=== PATIENT | female | born 1990 | race Caucasian/White ===

== ENCOUNTER 2020-08-24 15:25 | Inpatient (IN) | payer BC ==
[~2020-08-24] VITALS: Ht 170.2 cm; Wt 125.6 kg
[2020-08-24] MEDS ORDERED: HALOPERIDOL 5 MG TABLET PO PRN (19:30)
[2020-08-24 20:07] VITALS: BP 131/92
[2020-08-25 01:41] VITALS: BP 126/75
[2020-08-25 07:48] LABS: BASOPHILS % (AUTO) 0.6 % (0.0-2.0); HEMATOCRIT 39.5 % (36-46); HEMOGLOBIN 12.8 g/dL (12.0-16.0); LYMPHOCYTES # (AUTO) 2.4 K/uL (1.0-4.8); LYMPHOCYTES % (AUTO) 33.7 % (22.0-44.0); MEAN CORPUSCULAR HEMOGLOBIN 28.9 pg (26.0-34.0); MEAN CORPUSCULAR HGB CONC 32.5 G/dL (31.0-37.0); MEAN CORPUSCULAR VOLUME 89 fL (80-100); MONOCYTES # (AUTO) 0.6 K/uL (0.1-1.0); MONOCYTES % (AUTO) 8.7 % (2.0-9.0); NEUTROPHILS # (AUTO) 3.7 K/uL (1.8-7.7); PLATELET COUNT (AUTO) 425 K/uL (150-450); RED BLOOD CELL COUNT(AUTO) 4.45 MIL/uL (4.00-5.20); RED CELL DISTRIBUTION WIDTH 15.7 % (11.5-14.5)
[2020-08-25 08:08] LABS: HEMOGLOBIN A1C 5.3 % (3.8-5.6)
[2020-08-25 08:09] VITALS: BP 126/81
[2020-08-25] MEDS ORDERED: PETROLATUM,WHITE 28 GM JELLY TP PRN (08:15)
[2020-08-25] MEDS ORDERED: DOCUSATE SODIUM 100 MG CAPSULE PO PRN (08:15)
[2020-08-25] MEDS ORDERED: LOPERAMIDE HCL 2 MG CAPSULE PO PRN (08:15)
[2020-08-25] MEDS ORDERED: ALBUTEROL SULFATE HFA 90 MCG/PUFF 8 GM INHALER IH PRN (08:15)
[2020-08-25] MEDS ORDERED: ACETAMINOPHEN 325 MG TABLET PO PRN (08:15)
[2020-08-25] MEDS ORDERED: ONDANSETRON HCL 4 MG TABLET PO PRN (08:15)
[2020-08-25] MEDS ORDERED: IBUPROFEN 400 MG TABLET PO PRN (08:15)
[2020-08-25] MEDS ORDERED: CloNIDine HCL 0.1 MG TABLET PO PRN (08:15)
[2020-08-25] MEDS ORDERED: MAG HYDROX/AL HYDROX/SIMETH ES 30 ML SUSPENSION UDCUP PO PRN (08:15)
[2020-08-25] MEDS ORDERED: GuaiFENesin/D-METHORPHAN [SUGAR-FREE] 200-20MG/10 ML SYRUP UDCUP PO PRN (08:15)
[2020-08-25] MEDS ORDERED: MAGNESIUM HYDROXIDE SUSPENSION 30 ML UDCUP PO PRN (08:15)
[2020-08-25 08:19] LABS: ALANINE AMINOTRANSFERASE 40 U/L (12-78); ALBUMIN 2.9 g/dL (3.4-5.0); ALKALINE PHOSPHATASE 110 U/L (46-116); ANION GAP 8 mmol/L (8-16); ASPARTATE AMINOTRANSFERASE 23 U/L (15-37); BILIRUBIN,TOTAL 0.5 mg/dL (0.1-1.0); CARBON DIOXIDE 27 mmol/L (22-29); CHLORIDE 105 mmol/L (98-107); CHOL/HDL RATIO 2.2 (3.9-5.7); CHOLESTEROL 124 mg/dL (131-200); CREATININE 0.71 mg/dL (0.60-1.30); FREE T4 (FREE THYROXINE) 0.87 ng/dL (0.76-1.46); GLOMERULAR FILTR. RATE CALC > 60 mL/min (>60); GLUCOSE,RANDOM 78 mg/dL (70-110); HCG,QUANTITATIVE < 1 mIU/mL (0-6); HDL CHOLESTEROL 57 mg/dL (40-60); LDL CHOL (CALC.) 57 mg/dL (0-130); POTASSIUM 3.9 mmol/L (3.5-5.1); SODIUM SERUM 140 mmol/L (136-145); THYROID STIMULATING HORMONE 1.34 uIU/mL (0.36-3.74); TOTAL PROTEIN, SERUM 6.6 g/dL (6.4-8.2); TRIGLYCERIDES 49 mg/dL (15-150); UREA NITROGEN, BLOOD 8 mg/dL (7-18)
[2020-08-25 16:08] VITALS: BP 145/82
[2020-08-26 06:23] VITALS: BP 132/67
[2020-08-26 08:09] VITALS: BP 134/87
[2020-08-26] MEDS ORDERED: ARIPiprazole 10 MG TABLET PO SCH (09:00)
[2020-08-26] MEDS: LamoTRIgine 100 MG TABLET PO SCH ×2 (10:59→16:19)
[2020-08-26] MEDS: DULoxetine HCL 60 MG CAPSULE PO SCH (10:59)
[2020-08-26] MEDS: MUPIROCIN CALCIUM 2% 22 GM OINTMENT TP SCH (16:19)
[2020-08-26] MEDS: ZIPRASIDONE HCL 40 MG CAPSULE PO SCH (16:19)
[2020-08-26 16:49] LABS: GLUCOMETER DEV NAME(LOC) BV3S.; GLUCOSE,POINT OF CARE 118 MG/DL (70-110)
[2020-08-26 17:29] VITALS: BP 139/89
[2020-08-26] MEDS: ZOLPIDEM TARTRATE 10 MG TABLET PO PRN (22:05)
[2020-08-27 06:41] VITALS: BP 118/72
[2020-08-27] MEDS: ZIPRASIDONE HCL 40 MG CAPSULE PO SCH ×2 (06:49→15:49)
[2020-08-27] MEDS: DULoxetine HCL 60 MG CAPSULE PO SCH (08:02)
[2020-08-27] MEDS: LamoTRIgine 100 MG TABLET PO SCH ×2 (08:02→15:49)
[2020-08-27] MEDS: MUPIROCIN CALCIUM 2% 22 GM OINTMENT TP SCH ×2 (08:02→15:49)
[2020-08-27] MEDS: NICOTINE 14 MG/24 HOUR PATCH TD PRN (12:45)
[2020-08-27 16:06] VITALS: BP 134/82
[2020-08-27] MEDS: ZOLPIDEM TARTRATE 10 MG TABLET PO PRN (20:47)
[2020-08-28 05:31] VITALS: BP 116/70
[2020-08-28] MEDS: ZIPRASIDONE HCL 40 MG CAPSULE PO SCH ×2 (07:07→16:12)
[2020-08-28 08:05] VITALS: BP 129/79
[2020-08-28] MEDS: MUPIROCIN CALCIUM 2% 22 GM OINTMENT TP SCH ×2 (08:20→16:12)
[2020-08-28] MEDS: DULoxetine HCL 60 MG CAPSULE PO SCH (08:20)
[2020-08-28] MEDS: LamoTRIgine 100 MG TABLET PO SCH ×2 (08:20→16:12)
[2020-08-28] MEDS: NICOTINE 14 MG/24 HOUR PATCH TD PRN (12:36)
[2020-08-28] MEDS: LORazepam 2 MG TABLET PO PRN ×2 (13:01→21:29)
[2020-08-28 16:04] VITALS: BP 120/74
[2020-08-28] MEDS: ZOLPIDEM TARTRATE 10 MG TABLET PO PRN (21:29)
[2020-08-29 00:19] VITALS: BP 128/84
[2020-08-29] MEDS: ZIPRASIDONE HCL 40 MG CAPSULE PO SCH ×2 (06:15→16:25)
[2020-08-29] MEDS: MULTIVITAMINS WITH IRON TABLET PO SCH (08:03)
[2020-08-29] MEDS: LamoTRIgine 100 MG TABLET PO SCH ×2 (08:03→16:25)
[2020-08-29] MEDS: DULoxetine HCL 60 MG CAPSULE PO SCH (08:03)
[2020-08-29 08:08] VITALS: BP 124/76
[2020-08-29] MEDS: MUPIROCIN CALCIUM 2% 22 GM OINTMENT TP SCH ×2 (08:47→16:30)
[2020-08-29] MEDS: LORazepam 2 MG TABLET PO PRN ×2 (14:09→21:17)
[2020-08-29 16:05] VITALS: BP 125/88
[2020-08-29] MEDS: NICOTINE 14 MG/24 HOUR PATCH TD PRN (16:28)
[2020-08-29] MEDS: ZOLPIDEM TARTRATE 10 MG TABLET PO PRN (21:17)
[2020-08-30 05:17] VITALS: BP 120/85
[2020-08-30] MEDS: ZIPRASIDONE HCL 40 MG CAPSULE PO SCH ×2 (06:26→16:03)
[2020-08-30] MEDS: LamoTRIgine 100 MG TABLET PO SCH ×2 (09:33→16:03)
[2020-08-30] MEDS: MULTIVITAMINS WITH IRON TABLET PO SCH (09:34)
[2020-08-30] MEDS: DULoxetine HCL 60 MG CAPSULE PO SCH (09:34)
[2020-08-30] MEDS: MUPIROCIN CALCIUM 2% 22 GM OINTMENT TP SCH ×2 (09:35→16:04)
[2020-08-30] MEDS: NICOTINE 14 MG/24 HOUR PATCH TD PRN (10:49)
[2020-08-30] MEDS: LORazepam 2 MG TABLET PO PRN ×2 (12:19→21:14)
[2020-08-30 16:01] VITALS: BP 142/86
[2020-08-30] MEDS: ZOLPIDEM TARTRATE 10 MG TABLET PO PRN (21:14)
[2020-08-31] MEDS: ZIPRASIDONE HCL 40 MG CAPSULE PO SCH ×2 (06:39→16:06)
[2020-08-31] MEDS: DULoxetine HCL 60 MG CAPSULE PO SCH (08:15)
[2020-08-31] MEDS: MULTIVITAMINS WITH IRON TABLET PO SCH (08:15)
[2020-08-31] MEDS: CYANOCOBALAMIN 100 MCG TABLET PO SCH (08:15)
[2020-08-31] MEDS: MUPIROCIN CALCIUM 2% 22 GM OINTMENT TP SCH ×2 (08:15→16:06)
[2020-08-31] MEDS: LamoTRIgine 100 MG TABLET PO SCH ×2 (08:15→16:06)
[2020-08-31 08:21] VITALS: BP 132/74
[2020-08-31] MEDS: NICOTINE 14 MG/24 HOUR PATCH TD PRN (10:27)
[2020-08-31] MEDS: LORazepam 2 MG TABLET PO PRN ×2 (14:16→20:31)
[2020-08-31 16:01] VITALS: BP 145/79
[2020-08-31] MEDS: ZOLPIDEM TARTRATE 10 MG TABLET PO PRN (20:31)
[2020-09-01 01:55] VITALS: BP 134/82
[2020-09-01] MEDS: ZIPRASIDONE HCL 40 MG CAPSULE PO SCH ×2 (07:04→16:03)
[2020-09-01 08:01] VITALS: BP 104/63
[2020-09-01] MEDS: CYANOCOBALAMIN 100 MCG TABLET PO SCH (08:42)
[2020-09-01] MEDS: DULoxetine HCL 60 MG CAPSULE PO SCH (08:42)
[2020-09-01] MEDS: MULTIVITAMINS WITH IRON TABLET PO SCH (08:42)
[2020-09-01] MEDS: LamoTRIgine 100 MG TABLET PO SCH ×2 (08:42→16:03)
[2020-09-01] MEDS: MUPIROCIN CALCIUM 2% 22 GM OINTMENT TP SCH ×2 (08:43→16:04)
[2020-09-01] MEDS: NICOTINE 14 MG/24 HOUR PATCH TD PRN (11:46)
[2020-09-01] MEDS: LORazepam 2 MG TABLET PO PRN ×2 (15:39→22:31)
[2020-09-01 16:05] VITALS: BP 113/67
[2020-09-01] MEDS: ZOLPIDEM TARTRATE 10 MG TABLET PO PRN (22:31)
[2020-09-02 05:06] VITALS: BP 104/62
[2020-09-02] MEDS: ZIPRASIDONE HCL 40 MG CAPSULE PO SCH ×2 (06:32→16:23)
[2020-09-02 07:59] VITALS: BP 114/64
[2020-09-02] MEDS: MUPIROCIN CALCIUM 2% 22 GM OINTMENT TP SCH (08:24)
[2020-09-02] MEDS: LamoTRIgine 100 MG TABLET PO SCH ×2 (08:24→16:23)
[2020-09-02] MEDS: DULoxetine HCL 60 MG CAPSULE PO SCH (08:24)
[2020-09-02] MEDS: CYANOCOBALAMIN 100 MCG TABLET PO SCH (08:24)
[2020-09-02] MEDS: LORazepam 2 MG TABLET PO PRN ×3 (08:24→17:05)
[2020-09-02] MEDS: MULTIVITAMINS WITH IRON TABLET PO SCH (08:24)
[2020-09-02 09:19] VITALS: BP 114/64
[2020-09-02] MEDS: NICOTINE 14 MG/24 HOUR PATCH TD PRN (12:35)
[2020-09-02 16:02] VITALS: BP 140/80
[2020-09-03 04:34] VITALS: BP 117/65
[2020-09-03] MEDS: ZIPRASIDONE HCL 40 MG CAPSULE PO SCH ×2 (07:02→16:39)
[2020-09-03 08:04] VITALS: BP 134/81
[2020-09-03] MEDS: MULTIVITAMINS WITH IRON TABLET PO SCH (08:14)
[2020-09-03] MEDS: CYANOCOBALAMIN 100 MCG TABLET PO SCH (08:14)
[2020-09-03] MEDS: LORazepam 2 MG TABLET PO PRN ×2 (08:14→16:39)
[2020-09-03] MEDS: DULoxetine HCL 60 MG CAPSULE PO SCH (08:14)
[2020-09-03] MEDS: LamoTRIgine 100 MG TABLET PO SCH ×2 (08:14→16:39)
[2020-09-03] MEDS: NICOTINE 14 MG/24 HOUR PATCH TD PRN (08:15)
[2020-09-03 16:01] VITALS: BP 125/79
[2020-09-03] MEDS: ZOLPIDEM TARTRATE 10 MG TABLET PO PRN (20:41)
[2020-09-04 05:11] VITALS: BP 120/63
[2020-09-04] MEDS: ZIPRASIDONE HCL 40 MG CAPSULE PO SCH (06:47)
[2020-09-04 08:05] VITALS: BP 121/73
[2020-09-04] MEDS: CYANOCOBALAMIN 100 MCG TABLET PO SCH (08:23)
[2020-09-04] MEDS: LamoTRIgine 100 MG TABLET PO SCH (08:24)
[2020-09-04] MEDS: DULoxetine HCL 60 MG CAPSULE PO SCH (08:24)
[2020-09-04] MEDS: MULTIVITAMINS WITH IRON TABLET PO SCH (08:24)
[2020-09-04] MEDS: NICOTINE 14 MG/24 HOUR PATCH TD PRN (08:27)
[2020-09-04] MEDS ORDERED: ZIPR40CA2 PO (09:52)
[2020-09-04] MEDS ORDERED: LAMO100 PO (09:53)
[2020-09-04] MEDS ORDERED: DULO-8 PO (09:53)
== END 2020-09-04 14:18 | disposition home or self-care (01) | DRG 885 ==
LOC: B3A 19:27
PROVIDERS: ADMIT Psychiatry & Neurology Child & Adolescent Psychiatry; ATTEND Psychiatry & Neurology Child & Adolescent Psychiatry
DX: F31.4 Bipolar disorder, current episode depressed, severe, without psychotic features (principal); R45.851 Suicidal ideations; R03.0 Elevated blood-pressure reading, without diagnosis of hypertension; E66.9 Obesity, unspecified; K59.00 Constipation, unspecified; Z20.822 Contact with and (suspected) exposure to COVID-19; Z59.0 Homelessness
CPT/HCPCS: 80053; 80061; 82962; 83036; 84439; 84443; 84702; 85025; 87081